=== PATIENT | male | born 1945 | race Caucasian/White ===

== ENCOUNTER 2017-08-18 05:20 | Day surgery (SDC) | payer OTHER | END 2017-08-18 10:15 | disposition home or self-care (01) | LOC: AMB-ENDOS 05:20 | DX: D12.0 Benign neoplasm of cecum (principal); D12.5 Benign neoplasm of sigmoid colon; K64.8 Other hemorrhoids; K57.30 Diverticulosis of large intestine without perforation or abscess without bleeding ==

== ENCOUNTER 2018-05-18 14:49 | Outpatient (CLI) | payer OTHER | END 2018-05-18 14:53 | disposition home or self-care (01) | LOC: RAD 14:49 | DX: R07.89 Other chest pain (principal) ==

== ENCOUNTER 2018-11-25 10:49 | Outpatient (CLI) | payer OTHER | END 2018-11-25 17:00 | disposition home or self-care (01) | LOC: RAD 10:49 | DX: J06.9 Acute upper respiratory infection, unspecified (principal); J44.9 Chronic obstructive pulmonary disease, unspecified ==

== ENCOUNTER 2019-10-27 07:08 | Outpatient (CLI) | payer OTHER | END 2019-10-27 07:15 | disposition home or self-care (01) | LOC: SONOGRAMA 07:08 → MAMO-SONO 07:45 | PROVIDERS: ATTEND Internal Medicine Cardiovascular Disease | DX: K76.0 Fatty (change of) liver, not elsewhere classified (principal); R79.89 Other specified abnormal findings of blood chemistry ==

== ENCOUNTER 2019-12-12 14:20 | Outpatient (CLI) | payer OTHER | END 2019-12-12 15:00 | disposition home or self-care (01) | LOC: LAB 14:20 | DX: N20.0 Calculus of kidney (principal) ==

== ENCOUNTER 2019-12-13 07:45 | Outpatient (CLI) | payer OTHER | END 2019-12-13 07:53 | disposition home or self-care (01) | LOC: RAD 07:45 → TOM 07:45 → RAD 07:53 | PROVIDERS: ATTEND Internal Medicine Cardiovascular Disease | DX: K59.09 Other constipation (principal); K40.90 Unilateral inguinal hernia, without obstruction or gangrene, not specified as recurrent; D12.5 Benign neoplasm of sigmoid colon; K57.30 Diverticulosis of large intestine without perforation or abscess without bleeding ==

== ENCOUNTER 2020-04-04 10:49 | Outpatient (CLI) | payer OTHER | END 2020-04-04 10:53 | disposition home or self-care (01) | LOC: RAD 10:49 | PROVIDERS: ATTEND Internal Medicine Cardiovascular Disease | DX: I11.9 Hypertensive heart disease without heart failure (principal); R06.02 Shortness of breath; J44.9 Chronic obstructive pulmonary disease, unspecified; M54.17 Radiculopathy, lumbosacral region ==

== ENCOUNTER 2020-04-11 08:32 | Outpatient (CLI) | payer OTHER | END 2020-04-11 08:46 | disposition home or self-care (01) | LOC: NUCLEAR 08:32 | PROVIDERS: ATTEND Internal Medicine Cardiovascular Disease | DX: I44.0 Atrioventricular block, first degree (principal); I25.10 Atherosclerotic heart disease of native coronary artery without angina pectoris; R06.02 Shortness of breath ==

== ENCOUNTER → 2021-03-07 | Outpatient (CLI) | payer OTHER | END | disposition home or self-care (01) | LOC: RAD 08:36 | PROVIDERS: ATTEND Specialist | DX: M20.12 Hallux valgus (acquired), left foot (principal) ==

== ENCOUNTER 2021-03-14 08:08 | Outpatient (CLI) | payer OTHER | END 2021-03-14 08:14 | disposition home or self-care (01) | LOC: RAD 08:08 | DX: M99.01 Segmental and somatic dysfunction of cervical region (principal); M99.02 Segmental and somatic dysfunction of thoracic region; M99.03 Segmental and somatic dysfunction of lumbar region; M99.04 Segmental and somatic dysfunction of sacral region; M54.6 Pain in thoracic spine; M54.51 Vertebrogenic low back pain ==

== ENCOUNTER 2021-06-06 10:55 | Outpatient (CLI) | payer OTHER | END 2021-06-06 11:01 | disposition home or self-care (01) | LOC: RAD 10:55 | PROVIDERS: ATTEND Internal Medicine Pulmonary Disease | DX: R05.8 Other specified cough (principal); J44.1 Chronic obstructive pulmonary disease with (acute) exacerbation ==

== ENCOUNTER 2021-07-26 07:39 | Outpatient (CLI) | payer OTHER | END 2021-07-26 15:08 | disposition home or self-care (01) | LOC: NUCLEAR 07:39 | PROVIDERS: ATTEND Internal Medicine Cardiovascular Disease | DX: I25.110 Atherosclerotic heart disease of native coronary artery with unstable angina pectoris (principal) ==

== ENCOUNTER 2023-01-20 07:20 | Outpatient (CLI) | payer OTHER | END 2023-01-20 07:21 | disposition home or self-care (01) | LOC: NUCLEAR 07:20 | PROVIDERS: ATTEND Internal Medicine Cardiovascular Disease | DX: I25.10 Atherosclerotic heart disease of native coronary artery without angina pectoris (principal) ==

== ENCOUNTER → 2023-04-20 | Emergency (ER) | payer OTHER ==
[~2023-04-20] VITALS: Ht 177.8 cm; Wt 95.3 kg
[~2023-04-20] MED LIST: CANDESARTAN CIL16 MG; METFORMIN HCL500 MG
== END | disposition home or self-care (01) ==
LOC: ER 09:36
DX: R05.9 Cough, unspecified (principal); Z91.048 Other nonmedicinal substance allergy status

== ENCOUNTER 2024-04-06 15:38 | Emergency (ER) | payer OTHER ==
[~2024-04-06] VITALS: Ht 177.8 cm; Wt 95.3 kg
[2024-04-06 15:55] VITALS: BP 151/79; O2SAT 96
[2024-04-06] MEDS ORDERED: ATORVASTATIN CA40 MG PO (15:58)
[2024-04-06 18:15] LABS: HEMATOCRIT 44.2 % (39.0-48.0); HEMOGLOBIN 14.7 g/dL (13-16.00); MEAN CELL VOLUME 95.9 fL (80.0-100.00); MEAN CORPUSCULAR HEMOGLOBIN 31.9 pg (27.00-32.0); MEAN CORPUSCULAR HGB CONC 33.3 g/dl (32.0-36.0); PLATELET COUNT 180 K/uL (150-450); RED BLOOD COUNT 4.61 M/uL (4.00-6.00); RED CELL DISTRIBUTION WIDTH 13.6 % (11.5-14.5)
== END 2024-04-06 21:04 | disposition home or self-care (01) ==
LOC: ER 15:40
PROVIDERS: Preventive Medicine Public Health & General Preventive Medicine
DX: J06.9 Acute upper respiratory infection, unspecified (principal); Z91.018 Allergy to other foods; I10 Essential (primary) hypertension; Z20.822 Contact with and (suspected) exposure to COVID-19